=== PATIENT | male | born 1980 | race Caucasian/White ===

== ENCOUNTER 2019-11-23 | Emergency (ER) | payer SELFPAY ==
[~2019-11-23] MED LIST: OMEPRAZOLE20 MG PO
[2019-11-24 00:29] LABS: HEMOGLOBIN 18.1 g/dl (14.0-18.0); IMMATURE GRANULOCYTES 0.4 % (0.0-5.0); MEAN CELL VOLUME 83.6 fL CALC (80.0-100.0); MEAN CORPUSCULAR HGB CONC 33.5 g/L CALC (32.0-36.0); NEUT# 9.72 thou/uL (1.82-7.42); RED BLOOD COUNT 6.46 mill/uL (4.70-6.10); RED CELL DISTRI WIDTH 13.2 % (11.5-15.5)
[2019-11-24 00:48] LABS: ALBUMIN 5.3 g/dL (3.2-5.0); ALKALINE PHOSPHATASE 66 u/l (38-126); ANION GAP 19 (6-22 (CALC)); BILIRUBIN, TOTAL 0.5 mg/dL (0.0-1.4); BUN 17 mg/dL (9-20); BUN/CREATININE RATIO 14 (12-20 (CALC)); CARBON DIOXIDE 21 mmol/l (22-30); CHLORIDE 104 mmol/l (95-108); CREATININE 1.2 mg/dL (0.7-1.3); GFR > 60 ML/MIN (>=60 (CALC)); GFR FOR AFR.AMER. > 60 ML/MIN (>=60 (CALC)); MAGNESIUM 2.1 mg/dL (1.6-2.3); POTASSIUM 4.5 mmol/l (3.5-5.1); SGOT/AST 24 u/l (17-59); SODIUM 139 mmol/l (137-146); TOTAL PROTEIN 9.2 g/dL (6.3-8.2)
[2019-11-24] MEDS ORDERED: LOMOTIL2.5 MG PO (01:21)
== END 2019-11-24 01:35 | disposition home or self-care (01) | DRG 392 ==
PROVIDERS: Family Medicine
DX: R19.7 Diarrhea, unspecified (principal)